=== PATIENT | female | born 1975 ===

== ENCOUNTER 2017-06-02 00:46 | Emergency (ER) | payer SELFPAY ==
[2017-06-02] MEDS ORDERED: DiphenhydrAMINE 50 mg/ml Inj IVP STA (01:20)
[2017-06-02] MEDS ORDERED: Sodium Chloride 0.9% 1,000 ML IV ONE (01:21)
--- NOTE | 2017-06-02 01:21 | C.PDOC ---
History Of Present Illness patient presents with scalp itching, redness and minor swelling after using hair dye. Speaking in complete sentences. Tolerating po . NO f/c/n/v Time Seen by Provider: 06/02/17 01:04 Chief Complaint (Nursing): Allergic Reaction History Per: Patient History/Exam Limitations: no limitations Context: Other (hair dye) Associated Symptoms: Skin Rash, Redness (mild on scalp). denies: Trouble Swallowing, Dizziness Home/EMS Treatment: None Severity: Moderate Pain Scale Rating Of: 4 Recent travel outside of the [place]: No Additional History Per: Patient, Family Past Medical History Reviewed: Historical Data, Nursing Documentation, Vital Signs Vital Signs: Last Vital Signs Temp 98.7 F 06/02/17 00:54 Pulse 87 06/02/17 02:49 Resp 22 06/02/17 02:49 BP 164/105 H 06/02/17 02:49 Pulse Ox 100 06/02/17 02:49 Surgical History: No Surg Hx Family History: States: No Known Family Hx - Social History Hx Alcohol Use: No Hx Substance Use: No - Immunization History Hx Tetanus Toxoid Vaccination: No Hx Influenza Vaccination: No Hx Pneumococcal Vaccination: No Review Of Systems Constitutional: Negative for: Fever, Chills Eyes: Negative for: Redness ENT: Negative for: Mouth Swelling, Throat Pain, Throat Swelling Cardiovascular: Negative for: Chest Pain, Palpitations Respiratory: Negative for: Shortness of Breath Gastrointestinal: Negative for: Nausea, Vomiting Genitourinary: Negative for: Dysuria Musculoskeletal: Negative for: Neck Pain Skin: Positive for: Rash (head) Neurological: Negative for: Weakness Psych: Negative for: Anxiety Physical Exam - Physical Exam Appears: Non-toxic Skin: Warm, Dry, Rash (scalp. urticarial) Head: Normacephalic, Swelling (mild scalp) Eye(s): bilateral: Normal Inspection Nose: Normal Oral Mucosa: Moist Tongue: Normal Appearing Lips: Normal Appearing Throat: No Erythema, No Exudate, No Drooling Neck: Supple Chest: Symmetrical Cardiovascular: Rhythm Regular Respiratory: No Rales, No Rhonchi, No Wheezing Gastrointestinal/Abdominal: Soft, No Tenderness, No Distention Extremity: Bilateral: Atraumatic Neurological/Psych: Oriented x3, Normal Speech, Normal Cognition Gait: Steady ED Course And Treatment - Laboratory Results Result Diagrams: 06/02/17 02:18 06/02/17 02:18 O2 Sat by Pulse Oximetry: 97 Pulse Ox Interpretation: Normal Reevaluation Time: 03:41 Reassessment Condition: Improved Medical Decision Making Medical Decision Making: Upon provider reevaluation patient is feeling better, is medically stable, and requires no further treatment in the ED at this time. Patient will be discharged home with Rx for prednisone, epipen. Encouraged to also use pepcid, benadryl and claritin . Counseling was provided and all questions were answered regarding diagnosis and need for follow up with the referred clinic. There is agreement to discharge plan. Return if symptoms persist or worsen. Disposition Counseled Patient/Family Regarding: Studies Performed, Diagnosis, Need For Followup, Rx Given - Disposition Referrals: [facility] [Outside] [facility] [Outside] Disposition: HOME/ ROUTINE Disposition Time: 01:20 Condition: FAIR Additional Instructions: Please return if symptoms recur. Please also use pepcid, benadryl and claritin Prescriptions: Epinephrine [Epipen] 0.3 mg IJ ONCE PRN #1 auto.injct PRN Reason: Anaphylaxis Prednisone [Deltasone] 20 mg PO DAILY #5 tablet Instructions: General Allergic Reaction (ED) Forms: [employer] (Azerbaijani) Print Language: MONGOLIAN - Clinical Impression Clinical Impression: Allergic urticaria
[2017-06-02] MEDS ORDERED: DiphenhydrAMINE 50 mg/ml Inj ONE (01:33)
[2017-06-02 02:22] LABS: BASO % 0.2 % (0.0-2.0); EOS # 0.2 K/uL (0.0-0.7); EOS % 2.7 % (0.0-4.0); LYMPH # 1.9 K/uL (1.0-4.3); LYMPH % 22.6 % (20.0-40.0); MEAN CELL VOLUME 78.8 fL (81.0-99.0); MEAN CORPUSCULAR HEMOGLOBIN 25.2 pg (27.0-31.0); MEAN PLATELET VOLUME 7.4 fL (7.2-11.7); MONO # 0.8 K/uL (0.0-0.8); MONO % 9.5 % (0.0-10.0); RED CELL DISTRIBUTION WIDTH 15.8 % (11.5-14.5); WHITE BLOOD COUNT 8.3 K/uL (4.8-10.8)
[2017-06-02 02:26] LABS: RBC URINE 2 /hpf (0-3); URINE BACTERIA RARE (<OCC); URINE BILIRUBIN NEGATIVE (NEGATIVE); URINE BLOOD NEGATIVE (NEGATIVE); URINE COLOR Yellow (YELLOW); URINE GLUCOSE (UA) NORMAL (Normal); URINE KETONE TRACE mg/dL (NEGATIVE); URINE LEUKOCYTE ESTERASE TRACE Leu/uL (Negative); URINE PROTEIN 1+ mg/dL (NEGATIVE); URINE UROBILINOGEN NORMAL mg/dL (0.2-1.0); WBC URINE 5 /hpf (0-5)
[2017-06-02 02:29] LABS: CHLORIDE 102 mmol/L (98-107); POTASSIUM 3.4 mmol/L (3.6-5.2); SODIUM 139 mmol/L (132-148)
[2017-06-02 02:31] LABS: BILIRUBIN,TOTAL 0.5 mg/dL (0.2-1.3); CARBON DIOXIDE 22 mmol/L (22-30); GFR AFRICAN-AMERICAN > 60
[2017-06-02 02:32] LABS: ALB/GLOB RATIO 1.1 (1.0-2.1); ALKALINE PHOSPHATASE 62 U/L (38-126); ALT/SGPT 33 U/L (9-52); AST/SGOT 20 U/L (14-36); BLOOD UREA NITROGEN 10 mg/dL (7-17); CALCIUM 8.1 mg/dl (8.6-10.4); GLUCOSE,RANDOM 102 mg/dL (65-105); TOTAL PROTEIN 6.9 g/dL (6.3-8.3)
[2017-06-02 03:56] VITALS: BP 134/86; PULSE 88; RESP 18; TEMP 98.8; O2SAT 100
== END 2017-06-02 03:50 | disposition home or self-care (01) ==
LOC: C.ER 00:46
DX: L50.0 Allergic urticaria (principal)
CPT/HCPCS: 80053; 81001; 83690; 84703; 85025; 96374; 96375; 99285; J1200; J1885; J2930; J7040